=== PATIENT | female | born 1940 | race African-American/Black ===

== ENCOUNTER 2025-04-20 17:17 | Emergency (ER) | payer OTHER ==
[~2025-04-20] VITALS: Ht 162.6 cm; Wt 65.0 kg
[2025-04-20 17:23] VITALS: O2SAT 97
[2025-04-20 18:36] LABS: HEMATOCRIT. 27.0 % (36.0-48.0); HEMOGLOBIN. 8.5 g/dL (12.0-16.0); MEAN PLATELET VOLUME 7.2 fl (7.4-10.4); PLATELET 866 x1000/uL (130-400); RED BLOOD CELL COUNT 3.05 mill/uL (4.2-5.4); RED CELL DISTRIBUTION WIDTH 19.1 % (11.6-14.6)
[2025-04-20] MEDS: SODIUM CHLORIDE 0.9% (SEPSIS BOLUS) IV ONE (18:45)
[2025-04-20] MEDS: PIPERACILLIN/TAZO 3.375G/50ML 50 ML IV ONE (18:45)
[2025-04-20 18:50] LABS: CREATININE 1.0 mg/dL (0.6-1.0)
[2025-04-20 18:51] LABS: UREA NITROGEN BLOOD 22 mg/dL (9-23)
[2025-04-20 18:52] LABS: ASPARTATE AMINOTRANSFERASE 11 IU/L (<34)
[2025-04-20 18:53] LABS: BILIRUBIN DIRECT < 0.1 mg/dL (<=3.0); BILIRUBIN TOTAL 0.3 mg/dL (0.1-1.0); PROTEIN TOTAL 6.2 g/dL (6.0-8.3)
[2025-04-20 19:04] LABS: TROPONIN I HIGH SENSITIVITY 48 ng/L (3.0-34)
[2025-04-20 19:12] LABS: EOSINOPHILS % MANUAL 1.0 % (0.0-5.0); LYMPHOCYTES % MANUAL 6.0 % (20.0-60.0); MONOCYTES % MANUAL 14.0 % (2.0-8.0); NEUTROPHILS % MANUAL 79.0 % (45.0-75.0); PLATELET ESTIMATE INCREASED
[2025-04-20 20:00] VITALS: TEMP 37.2
[2025-04-20] MEDS: VANCOMYCIN 1G PREMIX 200 ML IV ONE (20:02)
[2025-04-20 20:42] VITALS: BP 141/50; PULSE 88; RESP 20; O2SAT 94
[2025-04-20 20:43] LABS: TROPONIN I HIGH SENSITIVITY 42 ng/L (3.0-34)
[2025-04-20 21:01] LABS: INFLUENZA TYPE A Presumptive Negative (Pres. Neg.); INFLUENZA TYPE B Presumptive Negative (Pres. Neg.)
[2025-04-20 21:02] LABS: RESPIRATORY SYNCYTIAL VIRUS Not Detected (Not Detectd)
== END 2025-04-20 21:08 | disposition short-term general hospital (02) ==
LOC: ER 17:17 → CMPBEDREQ 04-21 09:10
DX: L89.154 Pressure ulcer of sacral region, stage 4 (principal); I10 Essential (primary) hypertension; J44.9 Chronic obstructive pulmonary disease, unspecified; Z85.3 Personal history of malignant neoplasm of breast; Z20.822 Contact with and (suspected) exposure to COVID-19
CPT/HCPCS: 99291; 96365; 71045; 96367; 87426; 80076; 80048; 83605; 83735; 85025; 87420; 87040; 84484; 87804 ×2; 36415; 72220; J2543; J3373; J7030